=== PATIENT | male | born 1995 | race Caucasian/White ===

== ENCOUNTER 2023-02-12 19:45 | Emergency (ER) | payer BC, OTHER ==
[~2023-02-12] VITALS: Ht 172.7 cm; Wt 75.6 kg
[2023-02-12 19:46] VITALS: TEMP 97.7
[2023-02-12] MEDS ORDERED: MORPHINE 4 MG/ML 1ML VIAL IV ONE (20:30)
[2023-02-12] MEDS ORDERED: fentaNYL 100 MCG/2 ML INJECTION IV ONE (21:20)
[2023-02-12] MEDS ORDERED: NS 500 ML IV ONE (21:30)
[2023-02-12 21:36] VITALS: BP 147/78; O2SAT 98
== END 2023-02-12 23:56 | disposition home or self-care (01) ==
LOC: M ED 19:45
DX: S43.014A Anterior dislocation of right humerus, initial encounter (principal); V94.31XA Injury to rider of (inflatable) recreational watercraft being pulled behind other watercraft, initial encounter; Y92.39 Other specified sports and athletic area as the place of occurrence of the external cause; Y93.19 Activity, other involving water and watercraft; Y99.8 Other external cause status
CPT/HCPCS: 23655; 73020; 73030; 96374; 96375; 99283; J3010